=== PATIENT | female | born 1975 | race African-American/Black ===

== ENCOUNTER 2017-06-02 18:07 | Emergency (ER) | payer OTHER ==
--- NOTE | 2017-06-02 19:03 | ER Document Report ---
ED Medical Screen (RME) - General Chief Complaint: Leg Pain Stated Complaint: RIGHT LEG PAIN, SWELLING Time Seen by Provider: 06/02/17 19:01 Notes: Patient reports 2 weeks of right leg pain and swelling. Is mainly been swelling and tender on the lateral aspect. She states she is concerned about a blood clot and would like ultrasound. No previous history of blood clots. She does not smoke or use hormones. TRAVEL OUTSIDE OF THE [place] IN LAST 30 DAYS: No - Related Data Allergies/Adverse Reactions: ibuprofen [From Motrin] Allergy (Mild, Verified 06/02/17 18:15) Hives Past Medical History - Past Medical History Cardiac Medical History: Reports: Hx Hypertension Neurological Medical History: Denies: Hx Seizures Renal/ Medical History: Denies: Hx Peritoneal Dialysis Past Surgical History: Reports: Hx Cholecystectomy, Hx Tubal Ligation. Denies: Hx Pacemaker - Immunizations Hx Diphtheria, Pertussis, Tetanus Vaccination: No Physical Exam - Vital signs Vitals: Temp Pulse Resp Pulse Ox 98.4 F 86 189 H 100 06/02/17 18:13 06/02/17 18:13 06/02/17 18:13 06/02/17 18:13 Course - Vital Signs Vital signs: Temp Pulse Resp BP Pulse Ox 98.4 F 86 189 H 100 06/02/17 18:13 06/02/17 18:13 06/02/17 18:13 06/02/17 18:13
--- NOTE | 2017-06-02 21:01 | ER Document Report ---
ED Extremity Problem, Lower - General Mode of Arrival: Ambulatory Information source: Patient TRAVEL OUTSIDE OF THE [place] IN LAST 30 DAYS: No <LEEANNA BANEGAS - Last Filed: 06/02/17 21:17> <ALEKS WHALEN - Last Filed: 06/02/17 22:18> - General Chief Complaint: Leg Pain Stated Complaint: RIGHT LEG PAIN, SWELLING Time Seen by Provider: 06/02/17 19:01 Notes: Patient is a 42-year-old female who presents to the emergency department today for complaints of right thigh and right anterior lower leg pain. 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 Patient states she is worried that she may have a blood clot. Patient has never had a blood clot in the past. (LEEANNA BANEGAS) - Related Data Allergies/Adverse Reactions: ibuprofen [From Motrin] Allergy (Mild, Verified 06/02/17 18:15) Hives Past Medical History - General Information source: Patient - Social History Smoking Status: Never Smoker Cigarette use (# per day): No Frequency of alcohol use: None Drug Abuse: None Lives with: Family Family History: Reviewed & Not Pertinent - Past Medical History Cardiac Medical History: Reports: Hx Hypertension Past Surgical History: Reports: Hx Cholecystectomy, Hx Tubal Ligation - Immunizations Hx Diphtheria, Pertussis, Tetanus Vaccination: No <LEEANNA BANEGAS - Last Filed: 06/02/17 21:17> Review of Systems - Review of Systems Constitutional: No symptoms reported EENT: No symptoms reported Cardiovascular: No symptoms reported Respiratory: No symptoms reported Gastrointestinal: No symptoms reported Genitourinary: No symptoms reported Female Genitourinary: No symptoms reported Musculoskeletal: See HPI, Other - right thigh and lower anterior leg pain Skin: No symptoms reported Hematologic/Lymphatic: No symptoms reported Neurological/Psychological: No symptoms reported -: Yes All other systems reviewed and negative <LEEANNA BANEGAS - Last Filed: 06/02/17 21:17> Physical Exam - Vital signs Interpretation: Normal - General General appearance: Appears well, Alert - HEENT Head: Normocephalic, Atraumatic Eyes: Normal Pupils: PERRL - Respiratory Respiratory status: No respiratory distress Chest status: Nontender Breath sounds: Normal Chest palpation: Normal - Cardiovascular Rhythm: Regular Heart sounds: Normal auscultation Murmur: No - Abdominal Inspection: Normal Distension: No distension Bowel sounds: Normal Tenderness: Nontender Organomegaly: No organomegaly - Back Back: Normal, Nontender - Extremities General upper extremity: Normal inspection, Nontender, Normal color, Normal ROM , Normal temperature General lower extremity: Normal inspection, Tender - Anterolateral aspect of right calf. No tenderness to palpation posteriorly. Tenderness to palpation of anterior right thigh with no fluctuance. No erythema. Full range of motion. , Normal color, Normal ROM, Normal temperature, Normal weight bearing. No: Edema, Lucinda's sign - Neurological Neuro grossly intact: Yes Cognition: Normal Orientation: AAOx4 Naz Coma Scale Eye Opening: Spontaneous Naz Coma Scale Verbal: Oriented Douglas Coma Scale Motor: Obeys Commands Douglas Coma Scale Total: 15 Speech: Normal Motor strength normal: LUE, RUE, LLE, RLE Sensory: Normal - Psychological Associated symptoms: Normal affect, Normal mood - Skin Skin Temperature: Warm Skin Moisture: Dry Skin Color: Normal <ALEKS WHALEN - Last Filed: 06/02/17 22:18> - Vital signs Vitals: Temp Pulse Resp Pulse Ox 98.4 F 86 189 H 100 06/02/17 18:13 06/02/17 18:13 06/02/17 18:13 06/02/17 18:13 Course <LEEANNA BNAEGAS - Last Filed: 06/02/17 21:17> - Diagnostic Test Radiology reviewed: Reports reviewed <ALEKS WHALEN - Last Filed: 06/02/17 22:18> - Re-evaluation Re-evalutation: 06/02/17 Patient with muscle strain of her right leg. No evidence for DVT. Good pulses. Good range of motion. Ambulate without difficulty. Patient is instructed to wear supportive footwear and follow-up with her doctor. Stable for discharge. Return if any worsening or concerning symptoms. Patient will be given a copy of her venous Doppler. (ALEKS WHALEN) - Vital Signs Vital signs: Temp Pulse Resp BP Pulse Ox 98.4 F 86 189 H 100 06/02/17 18:13 06/02/17 18:13 06/02/17 18:13 06/02/17 18:13 Discharge <LEEANNA BANEGAS - Last Filed: 06/02/17 21:17> <ALEKS WHALEN - Last Filed: 06/02/17 22:18> - Discharge Clinical Impression: Leg pain, right Condition: Stable Disposition: HOME, SELF-CARE Instructions: Muscle Strain ([facility]) Additional Instructions: There is no evidence for a blood clot today. It appears that you have a strain of your muscles in the right leg. Please follow-up with your doctor as needed. Please make sure you are wearing supportive footwear. Forms: Return to Work Scribe Attestation: 06/02/17 22:18 I personally performed the services described in the documentation, reviewed and edited the documentation which was dictated to the scribe in my presence, and it accurately records my words and actions. (ALEKS WHALEN) Scribe Documentation - Scribe Written by Jonnibe:: Juancarlos Brown, 06/02/2017 [id number] acting as scribe for :: Jam <LEEANNA BANEGAS - Last Filed: 06/02/17 21:17>
--- NOTE | 2017-06-02 22:04 | RADIOLOGY REPORT (SQ) ---
EXAM DESCRIPTION: VENOUS UNILATERAL LOWER COMPLETED DATE/TIME: 06/02/2017 9:53 pm REASON FOR STUDY: right leg pain/swelling COMPARISON: None. TECHNIQUE: Dynamic and static colindres scale and color images acquired of the right leg venous system. S elected spectral images acquired with additional compression and augmentation maneuvers. The contrala teral common femoral vein and saphenofemoral junction were also imaged. Images stored on PACS. LIMITATIONS: None. FINDINGS: COMMON FEMORAL: Normal phasicity, compression and augmentation. No visualized echogenic ma terial on colindres scale. No defects on color images. FEMORAL: Normal compression and augmentation. No visualized echogenic material on colindres scale. No defe cts on color images. POPLITEAL: Normal compression, augmentation. No visualized echogenic material on colindres scale. No defec ts on color images. CALF VESSELS: Normal compression, augmentation. No visualized echogenic material on colindres scale. No de fects on color images. GSV and SSV: Normal compression, augmentation. No visualized echogenic material on colindres scale. No def ects on color images. ANY DEEP VENOUS INSUFFICIENCY: Not evaluated. ANY EVIDENCE OF POPLITEAL CYST: No. OTHER: No other significant finding. CONTRALATERAL COMMON FEMORAL VEIN AND SAPHENOFEMORAL JUNCTION: Normal phasicity, compression and augmentation. No visualized echogenic material on colindres scale. No de fects on color images. IMPRESSION: NO EVIDENCE DVT OR SVT IN THE RIGHT LEG. TECHNICAL DOCUMENTATION: JOB ID: [id number] [employer]- All Rights Reserved
[2017-06-02 22:22] VITALS: BP 123/78
== END 2017-06-02 22:21 | disposition home or self-care (01) ==
LOC: ER 18:07
DX: M79.652 Pain in left thigh (principal); M79.661 Pain in right lower leg; I10 Essential (primary) hypertension; Z88.6 Allergy status to analgesic agent
CPT/HCPCS: 93971; 99283